=== PATIENT | male | born 1945 | race Caucasian/White ===

== ENCOUNTER → 2018-04-19 | Outpatient (CLI) | payer OTHER ==
[~2018-04-19] MED LIST: AMARYL2 MG PO; ASA81BEC PO; CINNAMON500 MG PO; COLACE100 MG PO; ECOTRIN325 MG PO; HUMULIN 70100 UNIT/3 SQ; KEFLEX250 M1 PO; LISINOPRIL10 MG PO; NEURONTIN 300300 M1 PO; TOPROL XL25 MG PO; VITAMIN C500 M1 PO; ZOCOR40 MG PO
--- NOTE | ~2018-04-19 | 2DMMODE ---
[facility] [address] [place] [address] 2 D/M-MODE ECHOCARDIOGRAM Name: PANDA HINDS Room #: REG [facility]#: [id number] Admission: 04/19/18 Attend Phys: Adrián Cardozo MD Discharge: Date of : 41 Date of Service: 04/19/18 1123 Report #: [id number] THIS REPORT FOR: //name// APPROVED REPORT Study performed: 04/19/2018 10:26:08 EXAM: Comprehensive 2D, Doppler, and color-flow Echocardiogram Patient Location: Out-Patient Room #: Echo lab 2 Status: routine BSA: 1.76 HR: 69 bpm BP: 132/78 mmHg Other Information Study Quality: Fair Indications ICD: CAD 2D Dimensions RVDd: 30.28 mm IVSd: 9.59 (7-11mm) LVOT Diam: 21.50 (18-24mm) LVDd: 41.64 mm PWd: 7.73 (7-11mm) Ascending Ao: 32.23 (22-36mm) LVDs: 27.45 (25-40mm) Aortic Root: 32.09 mm Volumes Left Atrial Volume (Systole) Single Plane 4CH: 44.94 mL Single Plane 2CH: 27.01 mL LA ESV Index: 22.00 mL/m2 Aortic Valve AoV Peak Niko.: 0.73 m/s AO Peak Gr.: 2.14 mmHg LVOT Max P.78 mmHg LVOT Max V: 0.41 m/s NORMA Vmax: 2.05 cm2 Mitral Valve E/A Ratio: 1.0 MV Decel. Time: 211.21 ms MV E Max Niko.: 0.85 m/s [facility] [address] [address] 2 D/M-MODE ECHOCARDIOGRAM Name: PANDA HINDS Room #: REG [facility]#: [id number] Admission: 04/19/18 Attend Phys: Adrián Cardozo MD Discharge: Date of : 41 Date of Service: 04/19/18 1123 Report #: [id number] MV A Niko.: 0.84 m/s MV PHT: 61.25 ms IVRT: 92.27 ms Pulmonary Valve PV Peak Niko.: 0.85 m/s PV Peak Gr.: 2.93 mmHg Pulmonary Vein P Vein S: 0.33 m/s P Vein A: 0.18 m/s P Vein D: 0.26 m/s P Vein A Dur.: 78.4 msec P Vein S/D Ratio: 1.27 Tricuspid Valve TR Peak Niko.: 2.58 m/s TR Peak Gr.: 26.53 mmHg PA Pressure: 27.00 mmHg Left Ventricle The left ventricle is normal size. There is normal LV segmental wall motion. There is normal left ventricular wall thickness. The left ventricular systolic function is normal. The left ventricular ejection fraction is within the normal range. LVEF is 55-60%. This study is not technically sufficient to allow evaluation of the LV diastolic function. Right Ventricle The right ventricle is normal size. The right ventricular systolic function is normal. Device lead is present in the right ventricle. Atria The left atrium size is normal. The right atrium size is normal. Device lead is present in the right atrium. Aortic Valve The aortic valve is normal in structure. Aortic valve is calcified. No aortic regurgitation is present. There is no aortic valvular stenosis. Mitral Valve The mitral valve is normal in structure. There is no mitral valve regurgitation noted. No evidence of mitral valve stenosis. Tricuspid Valve The tricuspid valve is normal in structure. There is trace tricuspid regurgitation. The right atrial pressure is estimated at mmHg. There is no pulmonary hypertension. [facility] [address] [place] [address] 2 D/M-MODE ECHOCARDIOGRAM Name: PANDA HINDS Room #: REG [facility]#: [id number] Admission: 04/19/18 Attend Phys: Adrián Cardozo MD Discharge: Date of : 41 Date of Service: 04/19/18 1123 Report #: [id number] Pulmonic Valve The pulmonary valve is normal in structure. There is no pulmonic valvular regurgitation. Great Vessels The aortic root is normal in size. IVC is not well visualized. Pericardium There is no pericardial effusion. <Conclusion> The left ventricle is normal size. There is normal left ventricular wall thickness. The left ventricular systolic function is normal. The right ventricle is normal size. Device lead is present in the right ventricle. The left atrium size is normal. The right atrium size is normal. Device lead is present in the right atrium. There is no aortic valvular stenosis. There is no mitral valve regurgitation noted. <ELECTRONICALLY SIGNED> By: Adrián Cardozo MD 04/19/18 1123 1123 112 Adrián Cardozo MD /INF
== END ==
LOC: CV 08:23
DX: I35.8 Other nonrheumatic aortic valve disorders (principal); I25.10 Atherosclerotic heart disease of native coronary artery without angina pectoris

== ENCOUNTER → 2019-12-19 | Outpatient (CLI) | payer OTHER | LOC: SJCVC 13:23 | PROVIDERS: ATTEND Internal Medicine Cardiovascular Disease | DX: Z45.02 Encounter for adjustment and management of automatic implantable cardiac defibrillator (principal); R94.31 Abnormal electrocardiogram [ECG] [EKG]; I11.9 Hypertensive heart disease without heart failure; I25.10 Atherosclerotic heart disease of native coronary artery without angina pectoris; E78.00 Pure hypercholesterolemia, unspecified; Z95.810 Presence of automatic (implantable) cardiac defibrillator; Z95.1 Presence of aortocoronary bypass graft; Z79.899 Other long term (current) drug therapy ==

== ENCOUNTER → 2020-06-07 | Outpatient (CLI) | payer OTHER | LOC: SJCVCIMAG 08:35 | PROVIDERS: ATTEND Internal Medicine Cardiovascular Disease | DX: I25.810 Atherosclerosis of coronary artery bypass graft(s) without angina pectoris (principal); I49.3 Ventricular premature depolarization; I10 Essential (primary) hypertension; E78.00 Pure hypercholesterolemia, unspecified; I25.2 Old myocardial infarction; E11.9 Type 2 diabetes mellitus without complications; Z95.1 Presence of aortocoronary bypass graft; Z95.810 Presence of automatic (implantable) cardiac defibrillator; Z79.82 Long term (current) use of aspirin; Z79.4 Long term (current) use of insulin; Z79.899 Other long term (current) drug therapy; Z82.49 Family history of ischemic heart disease and other diseases of the circulatory system ==

== ENCOUNTER → 2020-11-22 | Outpatient (CLI) | payer OTHER | LOC: SJCVC 14:22 | PROVIDERS: ATTEND Internal Medicine Cardiovascular Disease | DX: R94.31 Abnormal electrocardiogram [ECG] [EKG] (principal); I11.9 Hypertensive heart disease without heart failure; I47.2 Ventricular tachycardia; I25.10 Atherosclerotic heart disease of native coronary artery without angina pectoris; I25.5 Ischemic cardiomyopathy; I25.2 Old myocardial infarction; E11.9 Type 2 diabetes mellitus without complications; E78.5 Hyperlipidemia, unspecified; Z95.810 Presence of automatic (implantable) cardiac defibrillator; Z95.1 Presence of aortocoronary bypass graft; Z88.8 Allergy status to other drugs, medicaments and biological substances; Z79.82 Long term (current) use of aspirin; Z79.4 Long term (current) use of insulin; Z79.899 Other long term (current) drug therapy; Z82.49 Family history of ischemic heart disease and other diseases of the circulatory system ==

== ENCOUNTER → 2020-11-28 | Outpatient (CLI) | payer OTHER ==
[~2020-11-28] VITALS: Ht 154.9 cm; Wt 71.8 kg
[~2020-11-28] MED LIST changes: +B12 ACTIVE1000 MCG PO; +CARBIDOPA-LEVO1 EA10 PO; +HUMALOG100 UNIT/1 SUBQ; +LIPITOR 40 MG T40 M1 PO; +NEURONTIN300 MG PO; +NOVOLOG100 UNIT/M SUBQ; +VITAMIN D210 MCG PO
[2020-11-28 09:54] VITALS: BP 132/47
[2020-11-28 10:00] LABS: ABSOLUTE NEUTROPHILS 9.1 thou/uL (1.4-8.2); BASOPHILS 0.5 % (0.0-2.0); EOSINOPHILS 2.1 % (0.0-3.0); HEMATOCRIT 46.1 % (42.0-52.0); HEMOGLOBIN 15.2 gm/dL (14.0-18.0); LYMPHOCYTES 11.8 % (24.0-44.0); MCH 29.8 pg (26.0-34.0); MCV 90.3 fL (80.0-100.0); MONOCYTES 11.3 % (1.0-8.0); PLATELET COUNT 224 thou/uL (150-400); POLYS 74.3 % (36.0-66.0); RDW 13.8 % (10.5-14.5); WBC 12.2 thou/uL (4.0-11.0)
[2020-11-28 10:20] LABS: ALBUMIN 3.6 g/dL (3.4-5.0); CALCIUM 8.7 mg/dL (8.5-10.1); CREATININE 1.5 mg/dL (0.7-1.3); TOTAL BILIRUBIN 1.1 mg/dL (0.2-1.0)
[2020-11-28 10:21] LABS: APTT 23.2 Seconds (24.5-32.8); PROTIME 10.2 Seconds (9.3-11.4)
--- NOTE | 2020-12-18 13:43 | P ---
[facility] [place] [address] PROCEDURE REPORT Name: PANDA HINDS Room #: REG IVAN Guzman.#: [id number] Admission: 11/28/20 Attend Phys: Juan Avery MD Discharge: Date of : 41 Report #: [id number] THIS REPORT FOR: cc: FAM - No family physician/PCP FAM - No family physician/PCP Juan Avery MD ~ PROCEDURE: Implantable cardioverter defibrillator generator exchange. PREOPERATIVE DIAGNOSIS: Implantable cardioverter defibrillator elective replacement indicator. POSTOPERATIVE DIAGNOSIS: Implantable cardioverter defibrillator elective replacement indicator. HISTORY: The patient is a 75-year-old with history of coronary artery disease, ischemic cardiomyopathy and ventricular tachycardia status post initial ICD implantation in 2004. He is here for ICD generator exchange. ANESTHESIA: The patient underwent MAC anesthesia with no anesthesia related complications. DESCRIPTION OF PROCEDURE: The patient underwent informed consent, he was brought to the EP laboratory in a fasting and sedated state. He was prepped and draped in a standard fashion, received IV antibiotics prior to initiation of the procedure. Next, I injected lidocaine at the prior incision site. Incision was made. Chronic pocket was entered. The device was disconnected from the leads tested and found to be functioning normally. New device was connected, tug test performed and then the pocket was irrigated with vancomycin and the pocket was closed in 2 layers using 2-0 for the deep layer, 3-0 for the middle layer and surgical glue was placed to outer skin layer. The patient awoke neurologically and hemodynamically intact. No complications and no significant bleeding. The explanted device is a Medtronic model #E167OAO, serial #[id number]. Newly implanted device is a Medtronic model #WSNK1E2, serial #[id number]. The atrial lead was a Medtronic 5076, serial #[id number]. Ventricular lead is a Medtronic 6935, serial #[id number]. Atrial lead demonstrated P-wave of 4.1 millivolts, pacing impedance of 456 ohms and the pacing threshold 0.6 volts at 0.5 milliseconds. The LV lead demonstrated R waves of 19 millivolts, pacing impedance of 389 ohms and a pacing threshold of 0.7 volts at 0.5 milliseconds. The device was programmed back to its nominal settings. [facility] [address] [place] [address] PROCEDURE REPORT Name: PANDA HINDS ANDREA Room #: REG MICHA[facility]ael [facility]dock#: [id number] Admission: 11/28/20 Attend Phys: Juan Avery MD Discharge: Date of : 41 Report #: [id number] CONCLUSION: Successful ICD generator exchange. <ELECTRONICALLY SIGNED> By: Juan Avery MD 12/18/20 1343 [id number] Juan Avery MD /nt
== END | disposition home or self-care (01) ==
LOC: CATH 08:37
PROVIDERS: ATTEND Internal Medicine Cardiovascular Disease
DX: Z45.02 Encounter for adjustment and management of automatic implantable cardiac defibrillator (principal); I42.9 Cardiomyopathy, unspecified; I10 Essential (primary) hypertension; E11.9 Type 2 diabetes mellitus without complications; I25.10 Atherosclerotic heart disease of native coronary artery without angina pectoris; E78.5 Hyperlipidemia, unspecified; G20 Parkinson's disease; Z98.890 Other specified postprocedural states; Z79.899 Other long term (current) drug therapy; Z20.822 Contact with and (suspected) exposure to COVID-19; Z79.4 Long term (current) use of insulin; Z95.1 Presence of aortocoronary bypass graft; Z79.82 Long term (current) use of aspirin
CPT/HCPCS: 62110; 62900; 70005

== ENCOUNTER → 2021-06-26 | Outpatient (CLI) | payer OTHER | LOC: SJCVCIMAG 08:23 | PROVIDERS: ATTEND Internal Medicine Cardiovascular Disease | DX: R94.31 Abnormal electrocardiogram [ECG] [EKG] (principal); I11.9 Hypertensive heart disease without heart failure; I35.8 Other nonrheumatic aortic valve disorders; I25.10 Atherosclerotic heart disease of native coronary artery without angina pectoris; I25.5 Ischemic cardiomyopathy; E78.00 Pure hypercholesterolemia, unspecified; M19.90 Unspecified osteoarthritis, unspecified site; G20 Parkinson's disease; Z95.810 Presence of automatic (implantable) cardiac defibrillator; Z79.82 Long term (current) use of aspirin; Z79.4 Long term (current) use of insulin; Z79.899 Other long term (current) drug therapy; Z82.49 Family history of ischemic heart disease and other diseases of the circulatory system; Z88.8 Allergy status to other drugs, medicaments and biological substances ==